=== PATIENT | male | born 1955 | race Caucasian/White ===

== ENCOUNTER 2017-11-15 13:00 | Emergency (ER) | payer OTHER ==
--- NOTE | 2017-11-15 13:22 | EDPHY ---
H & P Stated Complaint: high blood pressure Time Seen by Provider: 11/15/17 13:21 HPI/ROS: CHIEF COMPLAINT: Hypertension HISTORY OF PRESENT ILLNESS: The patient presents to the ED for evaluation of hypertension. The patient reportedly was diagnosed with high blood pressure in June is started on 2 medications for control of his blood pressure. He reports that today his blood pressure was markedly elevated with a systolic of approximately 190. He contacted the on-call service for his primary care provider who referred him to the emergency department. The patient denies any chest pain or shortness of breath. He does state that he experiences intermittent symptoms of acid reflux. The patient denies any asymmetric calf pain or swelling. The patient does feel slightly tremulous which he attributes to difficulty getting to the emergency department today. The patient reports he drinks approximately 4 beers a day. He reports that he did try to cut back his alcohol consumption when he was diagnosed with high blood pressure earlier this year. The patient denies any recent change in his alcohol consumption. REVIEW OF SYSTEMS: A comprehensive 10 point review of systems is otherwise negative aside from elements mentioned in the history of present illness. Source: Patient Exam Limitations: No limitations - Personal History Current Tetanus Diphtheria and Acellular Pertussis (TDAP): Unsure - Medical/Surgical History Hx Asthma: No Hx Chronic Respiratory Disease: No Hx Diabetes: No Hx Cardiac Disease: No Hx Renal Disease: No Hx Cirrhosis: No Hx Alcoholism: No Hx HIV/AIDS: No Hx Splenectomy or Spleen Trauma: No Other PMH: Hypertension - Social History Smoking Status: Former smoker - Physical Exam Exam: General Appearance: Alert, no distress Eyes: Pupils equal and round no pallor or injection ENT, Mouth: Mucous membranes moist Respiratory: There are no retractions, lungs are clear to auscultation Cardiovascular: Tachycardic Gastrointestinal: Abdomen is soft and nontender, no masses, bowel sounds normal Neurological: A&O, normal motor function, normal sensory exam, normal cranial nerves, slightly tremulous Skin: Warm and dry, no rashes Musculoskeletal: Neck is supple nontender Extremities: symmetrical, full range of motion Constitutional: Initial Vital Signs Temperature (C) 36.7 C 11/15/17 13:06 Heart Rate 115 H 11/15/17 13:06 Respiratory Rate 24 H 11/15/17 13:06 Blood Pressure 146/107 H 11/15/17 13:06 O2 Sat (%) 95 11/15/17 13:06 O2 Delivery Mode Room Air Allergies/Adverse Reactions: No Known Allergies Allergy (Unverified 11/15/17 13:44) Home Medications: Medication Instructions Recorded Unknown Bp 11/15/17 Medical Decision Making - Diagnostics EKG Interpretation: EKG: Complete interpretation has been separately recorded in the [facility] archive. Summary impression: Sinus tachycardia, rate 115 Imaging Results: Imaging Impressions Chest X-Ray 11/15/17 13:38 Impression: Left hemidiaphragm elevation related lower lobe atelectasis. ED Course/Re-evaluation: The patient presents to the ED for evaluation of hypertension. The patient does have a history of hypertension and started medications for this condition in June of this year. The patient was hypertensive upon arrival. The patient's blood pressure was checked without intervention in the ED. His systolic blood pressures stayed in the 130-150 range. The patient's EKG demonstrates no evidence of ischemia. The patient's troponin is normal. His chest x-ray demonstrates no evidence of acute disease. At this point time I do feel the patient can follow up with his primary care provider for a blood pressure recheck this week. He is advised to return to the ED for any markedly worsening symptoms, difficulty breathing or other concerns. Differential Diagnosis: Differential diagnosis considered includes hypertensive emergency, hypertensive urgency, aortic dissection, pulmonary embolism, myocardial infarction, dehydration - Data Points Laboratory Results: Laboratory Results 11/15/17 13:37 11/15/17 13:37 11/15/17 11/15/17 11/15/17 14:27 13:37 13:37 WBC 6.94 10^3/uL 10^3/uL (3.80-9.50) RBC 4.53 10^6/uL 10^6/uL (4.40-6.38) Hgb 16.1 g/dL g/dL (13.7-17.5) Hct 45.6 % % (40.0-51.0) MCV 100.7 fL H fL (81.5-99.8) MCH 35.5 pg H pg (27.9-34.1) MCHC 35.3 g/dL g/dL (32.4-36.7) RDW 13.0 % % (11.5-15.2) Plt Count 215 10^3/uL 10^3/uL (150-400) MPV 9.5 fL fL (8.7-11.7) Neut % (Auto) 68.4 % % (39.3-74.2) Lymph % (Auto) 18.9 % % (15.0-45.0) [place] % (Auto) 11.2 % % (4.5-13.0) Eos % (Auto) 0.4 % L % (0.6-7.6) Baso % (Auto) 0.7 % % (0.3-1.7) Nucleat RBC Rel Count 0.0 % % (0.0-0.2) Absolute Neuts (auto) 4.74 10^3/uL 10^3/uL (1.70-6.50) Absolute Lymphs (auto) 1.31 10^3/uL 10^3/uL (1.00-3.00) Absolute Monos (auto) 0.78 10^3/uL 10^3/uL (0.30-0.80) Absolute Eos (auto) 0.03 10^3/uL 10^3/uL (0.03-0.40) Absolute Basos (auto) 0.05 10^3/uL 10^3/uL (0.02-0.10) Absolute Nucleated RBC 0.00 10^3/uL 10^3/uL (0-0.01) Immature Gran % 0.4 % % (0.0-1.1) Immature Gran # 0.03 10^3/uL 10^3/uL (0.00-0.10) D-Dimer 0.33 ug/mLFEU ug/mLFEU (0.00-0.50) Sodium 141 mEq/L mEq/L (135-145) Potassium 4.2 mEq/L mEq/L (3.5-5.2) Chloride 102 mEq/L mEq/L (97-110) Carbon Dioxide 20 mEq/l L mEq/l (22-31) Anion Gap 19 mEq/L H mEq/L (8-16) BUN 23 mg/dL mg/dL (7-23) Creatinine 1.1 mg/dL mg/dL (0.7-1.3) Estimated GFR > 60 Glucose 147 mg/dL H mg/dL (70-100) Calcium 9.7 mg/dL mg/dL (8.5-10.4) Troponin I < 0.012 ng/mL ng/mL (0.000-0.034) Departure - Departure Disposition: Home, Routine, Self-Care Clinical Impression: Hypertension Condition: Good Instructions: Chronic Hypertension (ED) Additional Instructions: 1. The testing done in the emergency department today demonstrates no significant abnormality. 2. Please keep a log of your blood pressure each morning and night. 3. Please follow up with your primary care provider for a blood pressure recheck this week. 4. Return to the ED for chest pain, difficulty breathing, markedly elevated blood pressure or other concerns. Referrals: Crys Valladares MD [[facility] Primary Care Provider] - As per Instructions
--- NOTE | 2017-11-15 13:39 | CPEKG ---
Heart Rate: 115 RR Interval: 522 P-R Interval: 115 QRSD Interval: 96 QT Interval: 336 QTC Interval: 465 P [place]: 58 QRS [place]: -18 T Wave [place]: 41 EKG Severity - OTHERWISE NORMAL ECG - EKG Impression: SINUS TACHYCARDIA EKG Impression: BORDERLINE LEFT AXIS DEVIATION Electronically Signed By: Kristian Salcido 15-Nov-2017 16:25:42
[2017-11-15 13:45] LABS: PLATELET COUNT 215 10^3/uL (150-400)
[2017-11-15] MEDS ORDERED: LORazepam 1 MG TAB PO ONE (15:51)
[2017-11-15 15:54] VITALS: BP 130/97
== END 2017-11-15 15:54 | disposition home or self-care (01) ==
DX: I10 Essential (primary) hypertension (principal); Z87.891 Personal history of nicotine dependence